=== PATIENT | female | born 1995 | race Caucasian/White ===

== ENCOUNTER 2020-04-08 06:11 | Day surgery (SDC) | payer MEDICAID ==
[2020-04-05 10:44] LABS: BASOPHILS 0.2 % (0-2); EOSINOPHILS 0.8 % (0-7); HEMATOCRIT 44.6 % (36.0-48.0); HEMOGLOBIN 15.4 g/dL (12-16); IMMATURE GRANULOCYTES 0.1 % (0-5); LYMPHOCYTES 24.9 % (15-50); MCH 30.5 pg (26.0-34.0); MCHC 34.5 g/dL (31.0-37.0); MCV 88.3 fL (80.0-100.0); MEAN PLATELET VOLUME 10.3 fL (7.4-10.4); MONOCYTES 6.6 % (2-11); NEUTROPHILS 67.4 % (40-80); PLATELET COUNT 248 10x3/uL (130-400); RBC 5.05 10x6/uL (4.00-5.40); RDW 13.1 % (11.5-14.5)
[2020-04-05 10:52] LABS: UDS - AMPHET NEGATIVE QUAL (NEGATIVE); UDS - BARB NEGATIVE QUAL (NEGATIVE); UDS - BENZO NEGATIVE QUAL (NEGATIVE); UDS - COCAINE NEGATIVE QUAL (NEGATIVE); UDS - OPIATE NEGATIVE QUAL (NEGATIVE); UDS - PCP NEGATIVE QUAL (NEGATIVE); UDS - THC POSITIVE QUAL (NEGATIVE)
[~2020-04-08] VITALS: Ht 162.6 cm; Wt 48.5 kg
--- NOTE | ~2020-04-08 | OP ---
PATIENT NAME: QUETA RAYMOND MEDICAL RECORD: [id number] LOCATION:D[facility] ADMISSION DATE: SURGEON: NOLAN BEARDEN MD DATE OF OPERATION: 04/08/2020 PREOPERATIVE DIAGNOSES: 1. Undesired fertility. 2. Implantable contraception device. POSTOPERATIVE DIAGNOSES: 1. Undesired fertility. 2. Implantable contraception device. PROCEDURE PERFORMED: 1. Diagnostic laparoscopy. 2. Bilateral salpingectomy. 3. Removal of Nexplanon. SURGEON: Nolan Bearden MD ANESTHESIOLOGIST: Fabio Holden MD ANESTHESIA: General. FINDINGS: Uterus is unremarkable. Both tubes are unremarkable bilaterally. Nexplanon palpated in the medial surface of the left arm. What was visualized in the abdominal anatomy was unremarkable. SPECIMENS REMOVED: Nexplanon. SPECIMEN DISPOSITION: Discarded. ESTIMATED BLOOD LOSS: Minimal. FLUIDS: 700 cc of lactated Ringer's. URINE OUTPUT: Quantity sufficient void prior to this procedure. COMPLICATIONS: None. DRAINS: None. INDICATIONS: The patient is a 25-year-old multiparous female with undesired fertility. The patient has been counseled and understands alternatives to tubal ligation. The patient understands possibility of failure of 1 in 100 with an increased chance of ectopic gestation if was to occur. DESCRIPTION OF PROCEDURE: After informed consent was assured, the patient was taken to the operating room, anesthetic was obtained without difficulty. The patient is now prepped and draped in the usual sterile fashion. Incision was made in the umbilicus to accommodate a 5-mm trocar. This was inserted without difficulty and pneumoperitoneum developed. A 5-mm port was placed in the right lower quadrant, an 8 mm port placed in the midline. In the midline port, a grasper was inserted and the right tube was elevated. Using Thunderbeat coagulation cutter, the mesosalpinx cut and pressed coagulated and . OPERATIVE REPORT [id number] QUETA RAYMOND This dissection was carried out underneath the tube and across the cornual region. The tube was now removed from the pelvis. Attention was now directed to the left tube. Elevating the proximal segment of the left tube, the Thunderbeat coagulation cutter now compresses, coagulates, and separates the tube from its attachment to the uterus. Dissection was carried out underneath the tube laterally until it was removed. The tube was extracted from the pelvis. Operative field was found to be hemostatic and pneumoperitoneum was released. Accessory ports were removed. The primary port is now removed. All port sites were closed with a subcuticular stitch and Dermabond applied. Attention was now directed to the left arm. This has been prepped. An incision was made over the old scar from the Nexplanon implant. Using curved hemostats, the fibrous capsule surrounding the Nexplanon device is grasped and pulled to the incision. Using Adson pickups this tissue was teased until the device is removed from its fibrous sheath. The incision is closed with Steri-Strip. Sponge, lap, needle counts were correct times 2. The patient was awakened and went to the recovery area in stable condition. TRANSINT:[id number] Voice Confirmation ID: [id number] DOCUMENT ID: [id number] NOLAN BEARDEN MD CC: [id number] DICTATION DATE: 04/12/20 0641 [facility]: 04/12/20 1103 [facility] 04/08/20 [id number] [place] [address]
[2020-04-08 06:28] VITALS: BP 107/64; Ht 162.6 cm; Wt 48.5 kg
[2020-04-08 06:43] LABS: HCG URINE NEGATIVE (NEGATIVE)
== END 2020-04-08 15:03 | disposition home or self-care (01) ==
LOC: D.OPS 06:11
PROVIDERS: ATTEND Obstetrics & Gynecology
DX: Z30.2 Encounter for sterilization (principal); Z30.46 Encounter for surveillance of implantable subdermal contraceptive